=== PATIENT | female | born 1945 | race Native Hawaiian/Other Pacific Islander ===

== ENCOUNTER 2017-09-11 09:41 | Outpatient (CLI) | payer OTHER, MEDICARE | END 2017-09-11 21:17 | disposition home or self-care (01) | LOC: RAD 09:41 | DX: Z12.31 Encounter for screening mammogram for malignant neoplasm of breast (principal); Z13.820 Encounter for screening for osteoporosis; Z78.0 Asymptomatic menopausal state ==

== ENCOUNTER 2019-01-23 14:26 | Outpatient (CLI) | payer OTHER, MEDICARE | END 2019-01-23 19:17 | disposition home or self-care (01) | LOC: RAD 14:26 | DX: M54.89 Other dorsalgia (principal); M53.3 Sacrococcygeal disorders, not elsewhere classified ==

== ENCOUNTER 2021-04-18 12:08 | Emergency (ER) | payer OTHER, MEDICARE ==
[~2021-04-18] VITALS: Ht 162.6 cm; Wt 72.6 kg
[2021-04-18 12:11] VITALS: TEMP 98.9
[2021-04-18 12:33] LABS: PLATELET COUNT 254 K/uL (152-353)
[2021-04-18 13:11] LABS: POTASSIUM 3.9 mmol/L (3.6-5.2); SODIUM 139 mmol/L (136-145)
[2021-04-18 13:14] LABS: PARTIAL THROMBOPLASTIN TIME 24.1 SECONDS (24.5-33.6)
[2021-04-18 14:17] VITALS: BP 180/52
== END 2021-04-18 14:30 | disposition home or self-care (01) ==
LOC: ED 12:08
PROVIDERS: Emergency Medicine
DX: R07.89 Other chest pain (principal); I10 Essential (primary) hypertension
CPT/HCPCS: 80053; 83880; 84484; 85027; 85379; 85610; 85730; 93005; 99283; J1100; J3490

== ENCOUNTER 2021-10-19 12:02 | Outpatient (CLI) | payer OTHER, MEDICARE ==
[2021-10-19 12:59] LABS: POTASSIUM 3.9 mmol/L (3.6-5.2)
[2021-10-19 13:03] LABS: PLATELET COUNT 284 K/uL (152-353)
== END 2021-10-19 19:00 | disposition home or self-care (01) ==
LOC: LABW 12:02
PROVIDERS: ATTEND Internal Medicine Nephrology
DX: E11.9 Type 2 diabetes mellitus without complications (principal); E78.49 Other hyperlipidemia; I10 Essential (primary) hypertension; R31.9 Hematuria, unspecified; R80.8 Other proteinuria
CPT/HCPCS: 36415; 80053; 81000; 82043; 82306; 82570; 83516; 83883; 83970; 84155; 84165; 84166; 85027; 86038; 86160; 86225; 86255; 86334; 86335; 86430; 86704; 86706; 86803

== ENCOUNTER 2021-10-27 08:30 | Outpatient (CLI) | payer OTHER, MEDICARE | END 2021-10-27 19:08 | disposition home or self-care (01) | LOC: US 08:30 | PROVIDERS: ATTEND Internal Medicine Nephrology | DX: R31.9 Hematuria, unspecified (principal); E87.2 Acidosis ==

== ENCOUNTER 2022-07-03 12:29 | Outpatient (CLI) | payer OTHER, MEDICARE ==
[2022-07-03 12:51] LABS: PLATELET COUNT 247 K/uL (152-353)
[2022-07-03 13:11] LABS: POTASSIUM 3.8 mmol/L (3.6-5.2)
== END 2022-07-03 18:59 | disposition home or self-care (01) ==
LOC: LABW 12:29
PROVIDERS: ATTEND Internal Medicine Nephrology
DX: E11.9 Type 2 diabetes mellitus without complications (principal); E78.49 Other hyperlipidemia; E87.29 Other acidosis; F41.8 Other specified anxiety disorders; N18.2 Chronic kidney disease, stage 2 (mild); R31.9 Hematuria, unspecified; R80.8 Other proteinuria; I12.9 Hypertensive chronic kidney disease with stage 1 through stage 4 chronic kidney disease, or unspecified chronic kidney disease
CPT/HCPCS: 36415; 80069; 81000; 82306; 82570; 83970; 84156; 85027

== ENCOUNTER 2022-11-02 14:08 | Outpatient (CLI) | payer OTHER, MEDICARE ==
[2022-11-02 14:27] LABS: PLATELET COUNT 222 K/uL (152-353)
== END 2022-11-02 22:29 | disposition home or self-care (01) ==
LOC: LABW 14:08
PROVIDERS: ATTEND Internal Medicine Nephrology
DX: E11.9 Type 2 diabetes mellitus without complications (principal); E78.49 Other hyperlipidemia; E87.29 Other acidosis; F41.8 Other specified anxiety disorders; N18.2 Chronic kidney disease, stage 2 (mild); R31.9 Hematuria, unspecified; R80.8 Other proteinuria; I12.9 Hypertensive chronic kidney disease with stage 1 through stage 4 chronic kidney disease, or unspecified chronic kidney disease; E55.9 Vitamin D deficiency, unspecified
CPT/HCPCS: 36415; 81002; 82306; 82570; 83735; 83970; 84156; 85027

== ENCOUNTER 2022-11-15 12:05 | Outpatient (CLI) | payer OTHER, MEDICARE ==
[2022-11-15 12:52] LABS: POTASSIUM 3.9 mmol/L (3.6-5.2)
== END 2022-11-15 19:55 | disposition home or self-care (01) ==
LOC: LAB 12:05
PROVIDERS: ATTEND Internal Medicine Nephrology
DX: E11.9 Type 2 diabetes mellitus without complications (principal); E78.49 Other hyperlipidemia; E87.29 Other acidosis; F41.8 Other specified anxiety disorders; N18.2 Chronic kidney disease, stage 2 (mild); R31.9 Hematuria, unspecified; R80.8 Other proteinuria; I12.9 Hypertensive chronic kidney disease with stage 1 through stage 4 chronic kidney disease, or unspecified chronic kidney disease
CPT/HCPCS: 36415; 80069

== ENCOUNTER 2023-06-22 09:46 | Outpatient (CLI) | payer OTHER, MEDICARE ==
[2023-06-22 11:04] LABS: POTASSIUM 3.6 mmol/L (3.6-5.2)
== END 2023-06-22 19:46 | disposition home or self-care (01) ==
LOC: LABW 09:46
PROVIDERS: ATTEND Internal Medicine Nephrology
DX: E11.9 Type 2 diabetes mellitus without complications (principal); E55.9 Vitamin D deficiency, unspecified; E78.49 Other hyperlipidemia; F41.8 Other specified anxiety disorders; N18.2 Chronic kidney disease, stage 2 (mild); R31.9 Hematuria, unspecified; R80.8 Other proteinuria
CPT/HCPCS: 36415; 80069; 81002; 82043; 82306; 82570